=== PATIENT | female | born 1930 | race Caucasian/White ===

== ENCOUNTER 2016-03-22 17:31 | Inpatient (IN) | payer MEDICARE, OTHER ==
[2016-03-22 18:01] LABS: AUTOMATED MONOCYTE 12.7 % (3-10); AUTOMATED NEUTROPHIL 74.3 % (45-76); MPV 9.1 fL (7.4-10.4)
[2016-03-22 18:13] LABS: BLOOD UREA NITROGEN 15 MG/DL (7-17); CALC CORRECTED 8.8 MG/DL (8.4-10.2); CALCIUM 8.2 MG/DL (8.4-10.2); CALCULATED OSMOLALITY 263 MOs/Kg (270-290); CHLORIDE 97 mEq/L (98-107); GLUCOSE 168 MG/DL (70-99); SODIUM LEVEL 134 mEq/L (137-146); TOTAL PROTEIN 6.5 G/DL (6.3-8.2)
[2016-03-22 18:14] LABS: PT-INR 1.2
--- NOTE | 2016-03-22 18:32 | DIRPT ---
CLINICAL DATA: Cough, congestion and increasing shortness of breath EXAM: PORTABLE CHEST 1 VIEW COMPARISON: 12/23/2015 chest radiograph. FINDINGS: Median sternotomy wires are aligned and intact. Stable cardiomediastinal silhouette with normal heart size. No pneumothorax. No pleural effusion. There is a paucity of lung markings throughout the lungs, suggesting emphysema. There is patchy opacity in the medial basilar left lung. No pulmonary edema. IMPRESSION: 1. Patchy medial basilar left lung opacity, most suggestive of pneumonia and/or aspiration. Recommend follow-up PA and lateral post treatment chest radiographs in 6-8 weeks. 2. Emphysema. Electronically Signed By: Juwan Mcmahon M.D. On: 03/22/2016 18:29
--- NOTE | 2016-03-22 18:54 | EDPRACDOC ---
<Sander Sanabria - Last Filed: 03/22/16 19:58> - General Information Information Source: Patient - History of Present Illness Onset: 2-3 DAYS HPI: PT SENT FROM PCP OFFICE DUE TO THEM CLOSING FOR COUGH FOR 2 DAYS AND INCREASING SOB. NO FEVERS OR PRODUCTIVE SPUTUM AT THIS TIME. PT APPEARS CACHECTIC. Shortness of Breath: Mild Relevant History: Reports: None Cough: Reports: Non-productive Rhinorrhea: Reports: None Ear Symptoms: Reports: None SOB Worsens with: Reports: Exertion SOB Improves with: Reports: Nothing Associated Signs and symptoms: Reports: Cough, Other (INCREASED SOB. ) <James Amador - Last Filed: 03/22/16 20:39> - General Information Chief Complaint: Flu-Like Symptoms Stated Complaint: COUGH,CONGESTION Time Seen by Provider: 03/22/16 18:20 Home Medications: Home Medications Donepezil HCl [Aricept] 10 mg PO QHS 07/19/15 Levothyroxine [Synthroid, Levoxyl] 50 mcg PO DAILY 07/19/15 Quetiapine Fumarate [Seroquel] 25 mg PO QHS 07/19/15 Protein Products [Beneprotein] 7 gm PO TID 07/27/15 Metformin HCl 500 mg PO BID 08/16/15 Allergies/Adverse Reactions: Allergies Allergy/AdvReac Type Severity Reaction Status Date / Time gabapentin [From Neurontin] Allergy Unknown Verified 04/26/15 09:02 Iodine and Iodide Containing Allergy Unknown Verified 04/26/15 08:58 Produc levofloxacin [From Levaquin] Allergy Unknown Verified 04/26/15 08:59 meloxicam [From Mobic] Allergy Unknown Verified 04/26/15 09:00 metoprolol Allergy Unknown Verified 04/26/15 09:00 naproxen Allergy Unknown Verified 04/26/15 09:01 Penicillins Allergy Unknown Verified 04/26/15 09:07 Tetracyclines Allergy Unknown Verified 04/26/15 09:08 macrolides Allergy Unknown Uncoded 04/26/15 09:09 opiods Allergy Unknown Uncoded 04/26/15 09:09 - Treatment Prior to ED Arrival Reported Medications/Treatment [employer] Meds/Treatments Given O2 via Cannula EMS Treatment ALS <Sander Sanabria - Last Filed: 03/22/16 19:58> - Treatment Prior to ED Arrival Reported Medications/Treatment [employer] Meds/Treatments Given O2 via Cannula EMS Treatment ALS <James Amador - Last Filed: 03/22/16 20:39> ED Past Medical History - History Reviewed Yes Nurses notes reviewed and agree except as marked Travel Outside of [place] in the Last 3 Months?: No - Patient Medical History Neurological History: Reports: Dementia (severe) Cardiac History: Reports: Coronary Artery Disease, Hypertension, Cardiac Catheterization (2010 in [place]; stent placed.), CABG, Hypercholesterolemia GI/ History: Reports: Urinary Tract Infection (RECENTLY DIAGNOSED), Gastroesophageal Reflux Musculoskeletal History: Reports: Arthritis Psychological History: Denies: Depression, Substance Use Disorder Systemic History: Reports: Diabetes (Type 2), Hypothyroidism Surgical History: Reports: Cholecystectomy, CABG, Cardiac Catheterization (2010 in [place]; stent placed.), Hernia Surgery, Tonsillectomy/Adnoidectomy, Other ( THYROIDECTOMY, CATARACTS) - Family Medical History Comment Only: Diabetes (UNKNOWN PT CONFUSED) - Social Medical History Smoking Status: Former smoker Social History: Denies: Substance Use Disorder ETOH: None Substance Abuse: None Lives With: Other Lives In: Home <James Amador - Last Filed: 03/22/16 20:39> EDM Review of Systems - Review of Systems ROS Negative Except as Marked: Yes All systems reviewed and were negative except as marked Constitutional: No Symptoms Reported. negative: Fever, Chills, Weakness, Fatigue, Loss of Appetite Eyes: No Symptoms Reported. negative: Redness, Blurred Vision, Double Vision, Discharge, Pain, Light Sensitive, Photophobia Ears: No Symptoms Reported. negative: Pain, Hearing Loss, Drainage, Ear Pulling Throat: No Symptoms Reported. negative: Pain, Swelling Nose: No Symptoms Reported. negative: Congestion, Bleeding, Discharge, Injection, Swelling, Deformity, Ecchymosis, Tender, Abrasion, Laceration Mouth: No Symptoms Reported. negative: Pain, Drooling Respiratory: Cough. negative: Barky Cough, Brassy Cough, Hemoptysis, Shortness of Breath, Wheezing Cardiovascular: No Symptoms Reported. negative: Chest Pain, Palpitations, Syncope, Edema, Orthopnea, PND, Skin Mottling, Cyanosis Gastrointestinal: No Symptoms Reported. negative: Pain, Constipation, Nausea, Vomiting, Diarrhea, Melena, Formula Intolerance Genitourinary: No Symptoms Reported. negative: Dysuria, Hematuria, Frequency, Discharge, Bleeding, Testicular Pain, Neurological: No Symptoms Reported. negative: Headache, Dizziness, Seizure, Numbness, Weakness, Speech Difficulty, Gait Difficulty Musculoskeletal: No Symptoms Reported. negative: Neck, Chestwall, Ribs, Back, Shoulder, Arm, Elbow, Forearm, Wrist, Hand, Pelvis, Hip, Femur, Knee, Leg, Ankle , Foot Integumentary: No Symptoms Reported. negative: Itching, Rash, Bruising, Wound Allergic/Immunologic: No Symptoms Reported. negative: Hives, Itching Hematologic: No Symptoms Reported. negative: Lymphadenopathy, Easy Bruising, Easy Bleeding Endocrine: No Symptoms Reported. negative: Weight Gain, Weight Loss Psychiatric: No Symptoms Reported. negative: Anxiety, Depression, Hallucinations, Insomnia, Suicidal <James Amador - Last Filed: 03/22/16 20:39> - Physical Exam Last recorded Vital Signs: Last Vital Signs Temp 98.4 F 03/22/16 17:33 Pulse 107 03/22/16 19:37 Resp 16 03/22/16 19:37 BP 92/54 L 03/22/16 19:37 Pulse Ox 97 03/22/16 19:37 Oxygen Pulse Oxygen Saturation 97 O2 Device Nasal Cannula Oxygen Flow Rate 2 Fraction of Inspired Oxygen ( FIO2) <Sander Sanabria - Last Filed: 03/22/16 19:58> - Physical Exam Constitutional: No apparent distress, Alert (Awake) Oriented to: Time, Person, Place Last recorded Vital Signs: Last Vital Signs Temp 98.4 F 03/22/16 17:33 Pulse 82 03/22/16 18:49 Resp 18 03/22/16 18:49 BP 107/51 L 03/22/16 18:49 Pulse Ox 94 03/22/16 18:49 Oxygen Pulse Oxygen Saturation 94 O2 Device Room Air Oxygen Flow Rate Fraction of Inspired Oxygen ( FIO2) - HEENT Head: Normal ( normocephalic) Eye Exam: Normal (PERRL, EOMI, Sclera white) Oropharynx: Normal (Pharynx:Moist without exudate,Gums-no swelling) Tympanic Membrane: Normal ENT EAC: Normal TMJ: Normal Nose: No Symptoms Reported (septum midline) Neck: Normal (FROM, trachea at midline) - Respiratory/Cardiovascular Respiratory: Diminished Cardiovascular: Normal (RRR without murmur, gallop or rub) - GI Auscultation: Normal (NABS) Palpation: Normal (Soft,No rebound or guarding, non distended) Tenderness: Non tender Wesley's Sign: Negative - Bladder: Normal - Musculoskeletal Back: Normal (Non-Tender) Extremities: Normal (Normal tone, Pulses 2+ No cyanosis or edema, FROM) - Integumentary Skin: Normal, Warm, Dry Lymphatics: Normal (no adenopathy) - Neurologic Memory Impaired: Normal Motor Function: Normal (Normal tone, Pulses 2+ No cyanosis or edema, FROM) Cranial Nerve: Normal (CN II-X11 intact sensation, strength 5/5) Cerebellar: Normal Mood Description: Normal Perception: Normal <James Amador - Last Filed: 03/22/16 20:39> ED SOB MDM - Results Result Diagrams: 03/22/16 17:48 03/22/16 17:48 Results: WBC 9.4 xk/uL (3.8-10.8) 03/22/16 17:48 RBC 4.08 xM/uL (4.20-5.40) L 03/22/16 17:48 Hgb 12.6 g/dL (12.0-16.0) 03/22/16 17:48 Hct 38.3 % (36-47) 03/22/16 17:48 MCV 94 fL (81-99) 03/22/16 17:48 MCH 30.9 pg (27-32) 03/22/16 17:48 MCHC 32.9 g/dl (33-36) L 03/22/16 17:48 RDW 14.8 % (11.5-14.5) H 03/22/16 17:48 Plt Count 232 xk/uL (130-400) 03/22/16 17:48 MPV 9.1 fL (7.4-10.4) 03/22/16 17:48 Neut % (Auto) 74.3 % (45-76) 03/22/16 17:48 Lymph % (Auto) 12.0 % (17-44) L 03/22/16 17:48 [place] % (Auto) 12.7 % (3-10) H 03/22/16 17:48 Eos % (Auto) 0.0 % (0-5) 03/22/16 17:48 Baso % (Auto) 1.0 % (0-2) 03/22/16 17:48 Absolute Neuts (auto) 6.96 xk/uL (1.7-8.2) 03/22/16 17:48 Absolute Lymphs (auto) 1.13 xk/uL (0.65-4.75) 03/22/16 17:48 PT 12.7 SEC (9.2-11.2) H 03/22/16 17:48 INR 1.2 03/22/16 17:48 APTT 31.0 SEC (22-35) 03/22/16 17:48 Puncture Site Left radial 03/22/16 18:52 pH 7.480 pH UNITS (7.35-7.45) H 03/22/16 18:52 pCO2 35.0 mmHg (35-45) 03/22/16 18:52 pO2 64.0 mmHg (80-100) L 03/22/16 18:52 HCO3 26.1 MMOL/L (22-26) H 03/22/16 18:52 Total CO2 27.2 MMOL/L (23-27) H 03/22/16 18:52 Base Excess 2.8 (+/- 2) H 03/22/16 18:52 FiO2 % 21% 03/22/16 18:52 Specimen Drawn By Kasgl 03/22/16 18:52 Sodium 134 mEq/L (137-146) L 03/22/16 17:48 Potassium 4.0 mEq/L (3.5-5.1) 03/22/16 17:48 Chloride 97 mEq/L (98-107) L 03/22/16 17:48 Carbon Dioxide 27 mMOL/L (22-33) 03/22/16 17:48 Anion Gap 14 mEq/L (8-16) 03/22/16 17:48 BUN 15 MG/DL (7-17) 03/22/16 17:48 Creatinine 0.80 MG/DL (0.52-1.04) 03/22/16 17:48 Estimated GFR (MDRD) > 60 mL/min (>=60) 03/22/16 17:48 Glucose 168 MG/DL (70-99) H 03/22/16 17:48 Calculated Osmolality 263 MOs/Kg (270-290) L 03/22/16 17:48 Calcium 8.2 MG/DL (8.4-10.2) L 03/22/16 17:48 Corrected Calcium 8.8 MG/DL (8.4-10.2) 03/22/16 17:48 Total Bilirubin 0.7 MG/DL (0.2-1.3) 03/22/16 17:48 AST 35 IU/L (14-36) 03/22/16 17:48 ALT 40 IU/L (9-52) 03/22/16 17:48 Alkaline Phosphatase 98 IU/L (55-165) 03/22/16 17:48 Troponin I 0.04 ng/mL (<.04) 03/22/16 17:48 Total Protein 6.5 G/DL (6.3-8.2) 03/22/16 17:48 Albumin 3.4 G/DL (3.5-5.0) L 03/22/16 17:48 Microbiology 03/22/16 18:27 Influenza Type A Antigen Screen - Final N/P - Naso/Pharyngeal NEGATIVE Please note: A NEGATIVE result does not exclude an influenza virus infection. It is a presumptive result and, if required, confirmation should be done using either a virus culture or an FDA-cleared influenza A&B molecular assay. ("NORMAL" value = "NEGATIVE".) Influenza Type B Antigen Screen - Final NEGATIVE Please note: A NEGATIVE result does not exclude an influenza virus infection. It is a presumptive result and, if required, confirmation should be done using either a virus culture or an FDA-cleared influenza A&B molecular assay. ("NORMAL" value = "NEGATIVE".) Lab Results 03/22/16 03/22/16 03/22/16 18:52 17:48 17:48 WBC 9.4 RBC 4.08 L Hgb 12.6 Hct 38.3 MCV 94 MCH 30.9 MCHC 32.9 L RDW 14.8 H Plt Count 232 MPV 9.1 Neut % (Auto) 74.3 Lymph % (Auto) 12.0 L [place] % (Auto) 12.7 H Eos % (Auto) 0.0 Baso % (Auto) 1.0 Absolute Neuts (auto) 6.96 Absolute Lymphs (auto) 1.13 PT 12.7 H INR 1.2 APTT 31.0 Puncture Site Left radial pH 7.480 H pCO2 35.0 pO2 64.0 L HCO3 26.1 H Total CO2 27.2 H Base Excess 2.8 H FiO2 % 21% Specimen Drawn By Kasgl Sodium Potassium Chloride Carbon Dioxide Anion Gap BUN Creatinine Estimated GFR (MDRD) Glucose Calculated Osmolality Calcium Corrected Calcium Total Bilirubin AST ALT Alkaline Phosphatase Troponin I Total Protein Albumin 03/22/16 17:48 WBC RBC Hgb Hct MCV MCH MCHC RDW Plt Count MPV Neut % (Auto) Lymph % (Auto) [place] % (Auto) Eos % (Auto) Baso % (Auto) Absolute Neuts (auto) Absolute Lymphs (auto) PT INR APTT Puncture Site pH pCO2 pO2 HCO3 Total CO2 Base Excess FiO2 % Specimen Drawn By Sodium 134 L Potassium 4.0 Chloride 97 L Carbon Dioxide 27 Anion Gap 14 BUN 15 Creatinine 0.80 Estimated GFR (MDRD) > 60 Glucose 168 H Calculated Osmolality 263 L Calcium 8.2 L Corrected Calcium 8.8 Total Bilirubin 0.7 AST 35 ALT 40 Alkaline Phosphatase 98 Troponin I 0.04 Total Protein 6.5 Albumin 3.4 L <Sander Sanabria - Last Filed: 03/22/16 19:58> - Differential Diagnosis Differential Diagnosis: Heart Failure, Pnuemonia, Other (COPD, VIRAL SYNDROME) - Results Result Diagrams: 03/22/16 17:48 03/22/16 17:48 Results: WBC 9.4 xk/uL (3.8-10.8) 03/22/16 17:48 RBC 4.08 xM/uL (4.20-5.40) L 03/22/16 17:48 Hgb 12.6 g/dL (12.0-16.0) 03/22/16 17:48 Hct 38.3 % (36-47) 03/22/16 17:48 MCV 94 fL (81-99) 03/22/16 17:48 MCH 30.9 pg (27-32) 03/22/16 17:48 MCHC 32.9 g/dl (33-36) L 03/22/16 17:48 RDW 14.8 % (11.5-14.5) H 03/22/16 17:48 Plt Count 232 xk/uL (130-400) 03/22/16 17:48 MPV 9.1 fL (7.4-10.4) 03/22/16 17:48 Neut % (Auto) 74.3 % (45-76) 03/22/16 17:48 Lymph % (Auto) 12.0 % (17-44) L 03/22/16 17:48 [place] % (Auto) 12.7 % (3-10) H 03/22/16 17:48 Eos % (Auto) 0.0 % (0-5) 03/22/16 17:48 Baso % (Auto) 1.0 % (0-2) 03/22/16 17:48 Absolute Neuts (auto) 6.96 xk/uL (1.7-8.2) 03/22/16 17:48 Absolute Lymphs (auto) 1.13 xk/uL (0.65-4.75) 03/22/16 17:48 PT 12.7 SEC (9.2-11.2) H 03/22/16 17:48 INR 1.2 03/22/16 17:48 APTT 31.0 SEC (22-35) 03/22/16 17:48 Sodium 134 mEq/L (137-146) L 03/22/16 17:48 Potassium 4.0 mEq/L (3.5-5.1) 03/22/16 17:48 Chloride 97 mEq/L (98-107) L 03/22/16 17:48 Carbon Dioxide 27 mMOL/L (22-33) 03/22/16 17:48 Anion Gap 14 mEq/L (8-16) 03/22/16 17:48 BUN 15 MG/DL (7-17) 03/22/16 17:48 Creatinine 0.80 MG/DL (0.52-1.04) 03/22/16 17:48 Estimated GFR (MDRD) > 60 mL/min (>=60) 03/22/16 17:48 Glucose 168 MG/DL (70-99) H 03/22/16 17:48 Calculated Osmolality 263 MOs/Kg (270-290) L 03/22/16 17:48 Calcium 8.2 MG/DL (8.4-10.2) L 03/22/16 17:48 Corrected Calcium 8.8 MG/DL (8.4-10.2) 03/22/16 17:48 Total Bilirubin 0.7 MG/DL (0.2-1.3) 03/22/16 17:48 AST 35 IU/L (14-36) 03/22/16 17:48 ALT 40 IU/L (9-52) 03/22/16 17:48 Alkaline Phosphatase 98 IU/L (55-165) 03/22/16 17:48 Troponin I 0.04 ng/mL (<.04) 03/22/16 17:48 Total Protein 6.5 G/DL (6.3-8.2) 03/22/16 17:48 Albumin 3.4 G/DL (3.5-5.0) L 03/22/16 17:48 Lab Results 03/22/16 03/22/16 03/22/16 17:48 17:48 17:48 WBC 9.4 RBC 4.08 L Hgb 12.6 Hct 38.3 MCV 94 MCH 30.9 MCHC 32.9 L RDW 14.8 H Plt Count 232 MPV 9.1 Neut % (Auto) 74.3 Lymph % (Auto) 12.0 L [place] % (Auto) 12.7 H Eos % (Auto) 0.0 Baso % (Auto) 1.0 Absolute Neuts (auto) 6.96 Absolute Lymphs (auto) 1.13 PT 12.7 H INR 1.2 APTT 31.0 Sodium 134 L Potassium 4.0 Chloride 97 L Carbon Dioxide 27 Anion Gap 14 BUN 15 Creatinine 0.80 Estimated GFR (MDRD) > 60 Glucose 168 H Calculated Osmolality 263 L Calcium 8.2 L Corrected Calcium 8.8 Total Bilirubin 0.7 AST 35 ALT 40 Alkaline Phosphatase 98 Troponin I 0.04 Total Protein 6.5 Albumin 3.4 L - EKG EKG #1 EKG Time: 17:54 -: Yes EKG interpreted by me Rate: bpm: 94 [place]: Normal Rhythm: NSR, PACs Block: None Hypertrophy: None ST: Normal <James Amador - Last Filed: 03/22/16 20:39> - Departure Yes I personally saw and evaluated the patient. Disposition: Admit IP To This Hospital Decision to Admit Time: 20:00 Decision to admit date: 03/22/16 Decision to admit: from ED - Physician Consulted Hospitalist Time Called: 20:00 Provider Called: [employer] Returned Call: 20:00 <Sander Sanabria - Last Filed: 03/22/16 19:58> <James Amador - Last Filed: 03/22/16 20:39> - Departure Condition: Stable Final Diagnosis: Aspiration pneumonia Qualifiers: Aspiration pneumonia type: unspecified Laterality: left Lung location: lower lobe of lung Qualified Code(s): J69.0 - Pneumonitis due to inhalation of food and vomit Referrals: None,No Provider [Primary Care Provider] - One Week
[2016-03-22 18:57] LABS: ABG Draw Site Left Radial; ALLEN'S TEST PASS; BEb 2.8 (+/- 2); TCO2 27.2 MMOL/L (23-27)
[2016-03-22] MEDS ORDERED: AZITHROMYCIN 500 MG in D5W 250 ML IV ONE (18:58)
[2016-03-22 20:00] LABS: LEUKOCYTES/URINE TRACE (NEGATIVE); NITRITE/URINE NEG (NEGATIVE); URINE OCCULT BLOOD NEG (NEG/TRACE); WBC/URINE 20-30 (0-5)
--- NOTE | 2016-03-22 20:09 | HISTPHYS ---
- Chief Complaint coughing, shortness of breath - History of Present Illness PRIMARY CARE PROVIDER: Kait Hugo HPI: The patient is an 85 yo woman with dementia who lives at home with her daughter who presents with acute shortness of breath with intermittent chest pain. The patient has severe dementia so much of the history was provided by the patient' s daughter. Onset: 2-3 days. Duration: intermittent. Location: patient does not remember. Radiation: does not remember. Character: couldn't get a good breath. Severe coughing. Alleviated by: Nothing. Exacerbated by: Nothing. Associated Symptoms: Left arm pain started today. Intermittent chest pain but none now. Coughing productive of yellow-green sputum. Family noticed she has hard time swallowing and sometimes holds food in her mouth. Fever at home up to 102 about 2 days ago. Not eating and drinking much. Treatments: none at home except usual medications. Left foot has been black in color x 2 weeks. Getting darker. Does not hurt. Over last 2 weeks or so, she will start walking and then just fall down. She has had bilateral leg weakness. - Medical History Cardiac History: Reports: Coronary Artery Disease, Hypertension, Cardiac Catheterization (2010 in [place]; stent placed.), CABG, Hypercholesterolemia GI/ History: Reports: Urinary Tract Infection, Gastroesophageal Reflux Musculoskeletal History: Reports: Arthritis Systemic History: Reports: Diabetes (Type 2), Hypothyroidism Neurological History: Reports: Dementia (severe) Psychological History: Denies: Depression, Substance Use Disorder - Surgical History Reports: Cholecystectomy, CABG, Cardiac Catheterization (2010 in [place]; stent placed.), Hernia Surgery, Tonsillectomy/Adnoidectomy, Other (THYROIDECTOMY, CATARACTS) - Medictions/Allergies Allergies gabapentin [From Neurontin] Allergy (Verified 04/26/15 09:02) Unknown Iodine and Iodide Containing Produc Allergy (Verified 04/26/15 08:58) Unknown levofloxacin [From Levaquin] Allergy (Verified 04/26/15 08:59) Unknown meloxicam [From Mobic] Allergy (Verified 04/26/15 09:00) Unknown metoprolol Allergy (Verified 04/26/15 09:00) Unknown naproxen Allergy (Verified 04/26/15 09:01) Unknown Penicillins Allergy (Verified 04/26/15 09:07) Unknown Tetracyclines Allergy (Verified 04/26/15 09:08) Unknown macrolides Allergy (Uncoded 04/26/15 09:09) Unknown opiods Allergy (Uncoded 04/26/15 09:09) Unknown Current Medication List: Reviewed Home Medications Donepezil HCl [Aricept] 10 mg PO QHS 07/19/15 Levothyroxine [Synthroid, Levoxyl] 50 mcg PO DAILY 07/19/15 Quetiapine Fumarate [Seroquel] 25 mg PO QHS 07/19/15 Protein Products [Beneprotein] 7 gm PO TID 07/27/15 Metformin HCl 500 mg PO BID 08/16/15 - Family History Reports: Diabetes (Mother, son), Cancer (Father: leukemia.), Cardiac Disorders ( Mother: [place] - Social History Smoking Status: Former smoker Social History: Denies: Alcohol Use, Substance Use Disorder - Review of Systems GENERAL: Fever, chills. No diaphoresis. Positive for fatigue/malaise. HEENT: No ear pain or discharge. No nasal discharge or bleeding. No throat pain or swelling. No eye pain or eye redness. RESPIRATORY:Has cough, wheezing, and shortness of breath. CARDIOVASCULAR: No palpitations. Intermittent chest pain. GI: No abdominal pain, nausea, vomiting, diarrhea, constipation, or bloody stool. NEUROLOGICAL: No headache or focal weakness. INTEGUMENT: no rashes, itching, or lesions. LYMPHATIC SYSTEM: no lymph node swelling or pain. MUSCULOSKELETAL: no pain or joint swelling. GENITOURINARY: No dysuria or hematuria. ENDOCRINE: No polyuria or polydipsia. HEME: No chronic anemia, bleeding, or easy bruising. - Physical Exam Vital Signs: Initial Vitals Temperature 98.4 F 03/22/16 17:33 Pulse Rate 76 03/22/16 17:33 Respiratory Rate 16 03/22/16 17:33 Blood Pressure 109/57 L 03/22/16 17:33 Pulse Oxygen Saturation 92 03/22/16 17:33 Vital Signs - 24 hr 03/22/16 03/22/16 03/22/16 17:33 17:39 18:49 Temperature 98.4 F Pulse Rate 76 82 Respiratory 16 16 18 Rate Blood Pressure 109/57 L 107/51 L Pulse Oxygen 92 94 Saturation 03/22/16 03/22/16 19:00 19:37 Temperature Pulse Rate 107 Respiratory 16 Rate Blood Pressure 92/54 L Pulse Oxygen 95 97 Saturation Weight: 49.9 kg Height: 5 feet 8 inches BMI: 16.7 - Other Exam Other Exam Findings: GENERAL: Ill-appearing, cachetic, in acute distress. HEENT: Normocephalic, atraumatic; pupils equal and round. Nares patent, without discharge or bleeding. No oropharyngeal lesions or erythema. Mucous membranes are dry. NECK: is supple, no masses, trachea midline. RESPIRATORY: Clear to auscultation bilaterally. Chest wall movements are symmetric. No use of accessory muscles to breathe. Intermittent tachypnea. Bilateral rhonchi in bases and throughout left lung. No wheezing or rales. CARDIOVASCULAR: Normal S1, S2. Murmur 2/6 systolic. No rubs, or gallops. PMI non -displaced. Carotids: no carotid bruits. No bradycardia or tachycardia. DP pulses 2+ bilaterally. GI: soft, non-distended, normal active bowel sounds. No hepatosplenomegaly. Minimal generalized tenderness. INTEGUMENT: Clean, dry, and intact. No rashes. Right foot with ecchymoses throughout dorsal aspect. MUSCULOSKELETAL: Moving all extremities. No cyanosis. No clubbing. Edema: none bilaterally. NEUROLOGICAL: Cranial nerves 2-12 grossly intact. Motor 4/5 throughout upper extremities and 3/5 in lower extremities. Reflexes: 2+ bilaterally. Babinski: toes downgoing bilaterally. Intact Finger to nose. Sensory grossly intact to light touch. Intact rapid alternating movements bilaterally. No pronator drift. PSYCHIATRIC: Not oriented. Normal and appropriate affect. LYMPHATIC: No cervical lymphadenopathy. No supraclavicular lymphadenopathy. - Lab Results Laboratory Results - last 24 hr 03/22/16 03/22/16 03/22/16 17:48 17:48 17:48 WBC 9.4 RBC 4.08 L Hgb 12.6 Hct 38.3 MCV 94 MCH 30.9 MCHC 32.9 L RDW 14.8 H Plt Count 232 MPV 9.1 Neut % (Auto) 74.3 Lymph % (Auto) 12.0 L Harmon % (Auto) 12.7 H Eos % (Auto) 0.0 Baso % (Auto) 1.0 Absolute Neuts (auto) 6.96 Absolute Lymphs (auto) 1.13 PT 12.7 H INR 1.2 APTT 31.0 Puncture Site pH pCO2 pO2 HCO3 Total CO2 Base Excess FiO2 % Specimen Drawn By Sodium 134 L Potassium 4.0 Chloride 97 L Carbon Dioxide 27 Anion Gap 14 BUN 15 Creatinine 0.80 Estimated GFR (MDRD) > 60 Glucose 168 H Calculated Osmolality 263 L Lactic Acid Calcium 8.2 L Corrected Calcium 8.8 Total Bilirubin 0.7 AST 35 ALT 40 Alkaline Phosphatase 98 Troponin I 0.04 Total Protein 6.5 Albumin 3.4 L Urine Color Urine Clarity Urine pH Ur Specific [place] Urine Protein Urine Glucose (UA) Urine Ketones Urine Occult Blood Urine Nitrite Urine Bilirubin Urine Urobilinogen Ur Leukocyte Esterase Urine WBC Ur Epithelial Cells Urine Bacteria Urine Mucus 03/22/16 03/22/16 03/22/16 18:52 19:20 19:37 WBC RBC Hgb Hct MCV MCH MCHC RDW Plt Count MPV Neut % (Auto) Lymph % (Auto) Harmon % (Auto) Eos % (Auto) Baso % (Auto) Absolute Neuts (auto) Absolute Lymphs (auto) PT INR APTT Puncture Site Left radial pH 7.480 H pCO2 35.0 pO2 64.0 L HCO3 26.1 H Total CO2 27.2 H Base Excess 2.8 H FiO2 % 21% Specimen Drawn By [place] Sodium Potassium Chloride Carbon Dioxide Anion Gap BUN Creatinine Estimated GFR (MDRD) Glucose Calculated Osmolality Lactic Acid 1.1 Calcium Corrected Calcium Total Bilirubin AST ALT Alkaline Phosphatase Troponin I Total Protein Albumin Urine Color Yellow Urine Clarity Clear Urine pH 6.0 Ur Specific [place] 1.015 Urine Protein 1+ H Urine Glucose (UA) 2+ H Urine Ketones Neg Urine Occult Blood Neg Urine Nitrite Neg Urine Bilirubin Neg Urine Urobilinogen 2 H Ur Leukocyte Esterase Trace H Urine WBC 20-30 H Ur Epithelial Cells Occ Urine Bacteria Few Urine Mucus Occ - Diagnostic Findings EK beats per minute. Sinus rhythm with blocked PACs. T-wave inversion in lead V2. Reviewed EKG personally. Chest x-ray, viewed personally: CLINICAL DATA: Cough, congestion and increasing shortness of breath EXAM: PORTABLE CHEST 1 VIEW COMPARISON: 12/23/2015 chest radiograph. FINDINGS: Median sternotomy wires are aligned and intact. Stable cardiomediastinal silhouette with normal heart size. No pneumothorax. No pleural effusion. There is a paucity of lung markings throughout the lungs, suggesting emphysema. There is patchy opacity in the medial basilar left lung. No pulmonary edema. IMPRESSION: 1. Patchy medial basilar left lung opacity, most suggestive of pneumonia and/or aspiration. Recommend follow-up PA and lateral post treatment chest radiographs in 6-8 weeks. 2. Emphysema. PREVIOUS DATA: Stress test 07/27/2015 revealed: no evidence of ischemia. Normal wall motion. EF 79%. - Assessment (1) Aspiration pneumonia J69.0 - PNEUMONITIS DUE TO INHALATION OF FOOD AND VOMIT Acute Present on Admission: Yes Qualifiers: Aspiration pneumonia type: unspecified Laterality: left Lung location: lower lobe of lung Qualified Code(s): J69.0 - Pneumonitis due to inhalation of food and vomit Plan: NPO until speech therapy evaluation. Cultures ordered. IV antibiotics: Challenging due to patient's multiple allergies. Will try a cephalosporin and another agent. IV ceftriazone and aztreonam. (2) Hypoxia R09.02 - HYPOXEMIA Acute Present on Admission: Yes Plan: Oxygen by nasal cannula and increase as needed. (3) Dysphagia R13.10 - DYSPHAGIA, UNSPECIFIED Acute Present on Admission: Yes History of holding food in her mouth and not swallowing well. 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 Plan: NPO until speech therapy evaluation. (4) Type 2 diabetes mellitus with hyperglycemia E11.65 - TYPE 2 DIABETES MELLITUS WITH HYPERGLYCEMIA Acute Present on Admission: Yes Plan: Hold oral diabetes medications. Check fingerstick blood sugars q ac and hs. Sliding scale insulin. Ordered A1c and urine microalbumin. (5) Hypothyroidism E03.9 - HYPOTHYROIDISM, UNSPECIFIED Acute Present on Admission: Yes Check TSH. Continue Synthroid. (6) Dementia F03.90 - UNSPECIFIED DEMENTIA WITHOUT BEHAVIORAL DISTURBANCE Chronic Present on Admission: Yes Not oriented. Will hinder efforts with patient education and treatment. Plan: Continue home meds. (7) Chest pain R07.9 - CHEST PAIN, UNSPECIFIED Acute Present on Admission: Yes Patient initially said she had no chest pain, but then later stated she had some chest pain previously. Denies chest pain on admission. Chest pain, if any, is most likely due to coughing and respiratory issues. Stress test 07/27/2015 revealed: no evidence of ischemia. Normal wall motion. EF 79%. Plan: Monitor for further episodes of chest pain. Treat with pain medication. (8) Bilateral leg weakness R29.898 - OTH SYMPTOMS AND SIGNS INVOLVING THE MUSCULOSKELETAL SYSTEM Acute Present on Admission: Yes Has been present x several weeks. Plan: PT therapy eval and treat. Case Care Discussed with: Patient, Family, Nursing Staff Total Time: 70 min Couseling Time (>50% in counseling/coordination): Yes
[2016-03-22] MEDS ORDERED: NS 1,000 ML IV ONE (20:19)
[2016-03-22] MEDS: CEFTRIAXONE 1 GM in D5W 100 ML IV SCH (21:00)
[2016-03-22] MEDS ORDERED: D5W IV SCH (22:00)
[2016-03-22] MEDS ORDERED: AZTREONAM IV SCH (22:00)
[2016-03-22] MEDS: NS 1,000 ML IV SCH (22:17)
[2016-03-22] MEDS ORDERED: Vaccine Screening Complete SCH (23:00)
[2016-03-23] MEDS ORDERED: TEMAZEPAM 15 MG CAP PO PRN (00:14)
[2016-03-23] MEDS ORDERED: Aluminum;Magnesium;Simethicone 30 ML UDC PO PRN (00:14)
[2016-03-23] MEDS ORDERED: GLUCOSE (ORAL GEL) 15 GM TUBE PO PRN (00:14)
[2016-03-23] MEDS ORDERED: DEXTROSE 25 GM/50 ML PFS IV PRN (00:14)
[2016-03-23] MEDS ORDERED: SENNA CONCENTRATE TAB PO PRN (00:14)
[2016-03-23] MEDS ORDERED: BENZONATATE 100 MG PERLES PO PRN (00:14)
[2016-03-23] MEDS ORDERED: PROMETHAZINE 25 MG/ML VIAL IV PRN (00:14)
[2016-03-23] MEDS ORDERED: ONDANSETRON HCL 4 MG/2 ML VIAL IV PRN (00:14)
[2016-03-23] MEDS ORDERED: SIMETHICONE 80 MG TAB PO PRN (00:14)
[2016-03-23] MEDS ORDERED: Docusate Sodium 100 MG CAP PO PRN (00:14)
[2016-03-23] MEDS ORDERED: GLUCAGON 1 MG VIAL SQ PRN (00:14)
[2016-03-23] MEDS ORDERED: BISACODYL 5 MG TAB PO PRN (00:14)
[2016-03-23] MEDS ORDERED: GUAIFEN 100 MG-DEXTROMETH 10 MG PER 5 ML PO PRN (00:14)
[2016-03-23] MEDS: ENOXAPARIN 30 MG/0.3 ML PFS SQ SCH ×2 (00:51→19:51)
[2016-03-23] MEDS ORDERED: ENOXAPARIN 40 MG/0.4 ML PFS SQ SCH (01:00)
[2016-03-23] MEDS: REGULAR INSULIN 100 UNITS/ML - 3 ML VIAL SQ SCH ×4 (05:48→19:57)
[2016-03-23 06:23] LABS: MPV 9.5 fL (7.4-10.4)
[2016-03-23 06:41] LABS: BLOOD UREA NITROGEN 11 MG/DL (7-17); CALCIUM 7.5 MG/DL (8.4-10.2); CALCULATED OSMOLALITY 259 MOs/Kg (270-290); CHLORIDE 102 mEq/L (98-107); GLUCOSE 95 MG/DL (70-99); SODIUM LEVEL 135 mEq/L (137-146)
[2016-03-23] MEDS: AZTREONAM IV SCH ×2 (08:01→21:03)
[2016-03-23] MEDS: D5W IV SCH ×2 (08:01→21:03)
[2016-03-23] MEDS: NS 1,000 ML IV SCH ×3 (08:01→19:50)
[2016-03-23] MEDS: LEVOTHYROXINE 50 MCG (0.05 MG) TAB PO SCH (11:24)
[2016-03-23] MEDS: GABAPENTIN 100 MG CAP PO SCH ×2 (11:24→19:50)
--- NOTE | 2016-03-23 18:00 | GENMEDPROG ---
- Physical Examination Vital Signs and I&O: Last Vital Signs Temp 98.8 F 03/23/16 15:20 Pulse 76 03/23/16 15:20 Resp 20 03/23/16 15:20 BP 143/67 03/23/16 15:20 Pulse Ox 93 03/23/16 15:20 Oxygen Pulse Oxygen Saturation 93 O2 Device Nasal Cannula Oxygen Flow Rate 1 Fraction of Inspired Oxygen ( FIO2) Intake & Output 03/20/16 03/21/16 03/22/16 03/23/16 23:59 23:59 23:59 23:59 Intake Total 700 2344 Output Total 1400 Balance 700 944 Patient's weight 36.333 kg 36.968 kg Lymphatics: Normal (no adenopathy) Respiratory: Diminished Lab/DI/Studies Reviewed: Abnormal Lab Results 03/22/16 03/22/16 03/22/16 17:48 17:48 17:48 RBC 4.08 L Hgb Hct MCHC 32.9 L RDW 14.8 H Lymph % (Auto) 12.0 L Hartley % (Auto) 12.7 H PT 12.7 H pH pO2 HCO3 Total CO2 Base Excess Sodium 134 L Chloride 97 L Glucose 168 H POC Capillary Glucose Hemoglobin A1c Calculated Osmolality 263 L Calcium 8.2 L Albumin 3.4 L Urine Protein Urine Glucose (UA) Urine Urobilinogen Ur Leukocyte Esterase Urine WBC 03/22/16 03/22/16 03/23/16 18:52 19:37 05:35 RBC Hgb Hct MCHC RDW Lymph % (Auto) Hartley % (Auto) PT pH 7.480 H pO2 64.0 L HCO3 26.1 H Total CO2 27.2 H Base Excess 2.8 H Sodium Chloride Glucose POC Capillary Glucose Hemoglobin A1c 8.2 H Calculated Osmolality Calcium Albumin Urine Protein 1+ H Urine Glucose (UA) 2+ H Urine Urobilinogen 2 H Ur Leukocyte Esterase Trace H Urine WBC 20-30 H 03/23/16 03/23/16 03/23/16 05:35 05:35 11:22 RBC 3.58 L Hgb 11.2 L D Hct 33.1 L MCHC RDW Lymph % (Auto) [place] % (Auto) PT pH pO2 HCO3 Total CO2 Base Excess Sodium 135 L Chloride Glucose POC Capillary Glucose 108 H Hemoglobin A1c Calculated Osmolality 259 L Calcium 7.5 L Albumin Urine Protein Urine Glucose (UA) Urine Urobilinogen Ur Leukocyte Esterase Urine WBC 03/23/16 16:12 RBC Hgb Hct MCHC RDW Lymph % (Auto) [place] % (Auto) PT pH pO2 HCO3 Total CO2 Base Excess Sodium Chloride Glucose POC Capillary Glucose 133 H Hemoglobin A1c Calculated Osmolality Calcium Albumin Urine Protein Urine Glucose (UA) Urine Urobilinogen Ur Leukocyte Esterase Urine WBC - Assessment (1) Aspiration pneumonia Acute J69.0 - PNEUMONITIS DUE TO INHALATION OF FOOD AND VOMIT Qualifiers: Aspiration pneumonia type: unspecified Laterality: left Lung location: lower lobe of lung Qualified Code(s): J69.0 - Pneumonitis due to inhalation of food and vomit Comment/Plan: Plan: NPO until speech therapy evaluation. Cultures ordered. IV antibiotics: Challenging due to patient's multiple allergies. Will try a cephalosporin and another agent. IV ceftriazone and aztreonam. (2) Bilateral leg weakness Acute R29.898 - OTH SYMPTOMS AND SIGNS INVOLVING THE MUSCULOSKELETAL SYSTEM Comment/Plan: Has been present x several weeks. Plan: PT therapy eval and treat. (3) Chest pain Acute R07.9 - CHEST PAIN, UNSPECIFIED Comment/Plan: Patient initially said she had no chest pain, but then later stated she had some chest pain previously. Denies chest pain on admission. Chest pain, if any, is most likely due to coughing and respiratory issues. Stress test 07/27/2015 revealed: no evidence of ischemia. Normal wall motion. EF 79%. Plan: Monitor for further episodes of chest pain. Treat with pain medication. (4) Dysphagia Acute R13.10 - DYSPHAGIA, UNSPECIFIED Comment/Plan: History of holding food in her mouth and not swallowing well. 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 Plan: NPO until speech therapy evaluation. (5) Hypothyroidism Acute E03.9 - HYPOTHYROIDISM, UNSPECIFIED Comment/Plan: Check TSH. Continue Synthroid. (6) Hypoxia Acute R09.02 - HYPOXEMIA Comment/Plan: Plan: Oxygen by nasal cannula and increase as needed. (7) Type 2 diabetes mellitus with hyperglycemia Acute E11.65 - TYPE 2 DIABETES MELLITUS WITH HYPERGLYCEMIA Comment/Plan: Plan: Hold oral diabetes medications. Check fingerstick blood sugars q ac and hs. Sliding scale insulin. Ordered A1c and urine microalbumin. (8) Dementia Chronic F03.90 - UNSPECIFIED DEMENTIA WITHOUT BEHAVIORAL DISTURBANCE Comment /Plan: Not oriented. Will hinder efforts with patient education and treatment. Plan: Continue home meds.
[2016-03-23] MEDS: QUETIAPINE FUMARATE 25 MG TAB PO SCH (19:50)
[2016-03-23] MEDS: CEFTRIAXONE 1 GM in D5W 100 ML IV SCH (19:50)
[2016-03-23] MEDS: ENSURE PUDDING CHOCOLATE 5 OZ PO SCH (19:50)
[2016-03-24] MEDS: NS 1,000 ML IV SCH ×3 (01:27→17:19)
[2016-03-24] MEDS: REGULAR INSULIN 100 UNITS/ML - 3 ML VIAL SQ SCH ×5 (06:00→21:23)
[2016-03-24] MEDS: LEVOTHYROXINE 50 MCG (0.05 MG) TAB PO SCH (07:59)
[2016-03-24] MEDS: GABAPENTIN 100 MG CAP PO SCH ×2 (07:59→21:23)
[2016-03-24] MEDS ORDERED: D5W IV SCH (08:00)
[2016-03-24] MEDS ORDERED: AZTREONAM IV SCH (08:00)
[2016-03-24] MEDS ORDERED: ENSURE PUDDING CHOCOLATE 5 OZ PO SCH (09:00)
[2016-03-24] MEDS: ENSURE PUDDING CHOCOLATE 5 OZ PO SCH ×2 (12:05→21:23)
[2016-03-24] MEDS: METRONIDAZOLE 500 MG IV SCH ×2 (14:56→22:27)
[2016-03-24] MEDS: ENOXAPARIN 30 MG/0.3 ML PFS SQ SCH (16:36)
--- NOTE | 2016-03-24 18:34 | GENMEDPROG ---
- Physical Examination Vital Signs and I&O: Last Vital Signs Temp 98 F 03/24/16 17:18 Pulse 75 03/24/16 17:18 Resp 20 03/24/16 17:18 BP 150/66 03/24/16 17:18 Pulse Ox 95 03/24/16 17:18 Oxygen Pulse Oxygen Saturation 95 O2 Device Nasal Cannula Oxygen Flow Rate 2 Fraction of Inspired Oxygen ( FIO2) Intake & Output 03/21/16 03/22/16 03/23/16 03/24/16 23:59 23:59 23:59 23:59 Intake Total 700 2584 2427 Output Total 1400 1900 Balance 700 1184 527 Patient's weight 80 lb 1.6 oz 81 lb 8 oz 83 lb 6.4 oz General: Alert, Oriented x3, No acute distress, Well appearing, Well nourished HEENT: Normal (Normocephalic, atraumatic;EOMI.Sclera white, Nares patent, without discharge or bleeding. No oropharyngeal lesions or erythema. Mucous membranes are dry.) Neck: Non-tender, Full range of motion, Normal Trachea alignment, Normal inspection (No cervical lymphadenopathy. No supraclavicular lymphadenopathy.), No Masses palpable, Supple Lymphatics: Normal (no adenopathy) Respiratory: Diminished Cardiovascular: Regular rate and rhythm (No bradycardia or tachycardia), Normal S1, No Gallops,Rubs/Murmurs, Normal S2, Good Pedal Pulses (DP pulses 2+ bilaterally) GI: Normal bowel sounds (normal active sounds), Soft (non-distended), Non tender , No hepatospenomegaly, No masses Extremities/Musculoskeletal: Normal pulses (DP pulses 2+ bilaterally) Skin: Warm,Dry and Intact, No rashes, No significant lesion Neurological: Strength at 5/5 X4 ext (Motor 5/5 throughout.), Normal tone, Cranial nerves 3-12 NL ( 2-12 grossly intact.) Psych/Mental Status: Appropriate, Normal Affect - Assessment (1) Aspiration pneumonia Acute J69.0 - PNEUMONITIS DUE TO INHALATION OF FOOD AND VOMIT Qualifiers: Aspiration pneumonia type: unspecified Laterality: left Lung location: lower lobe of lung Qualified Code(s): J69.0 - Pneumonitis due to inhalation of food and vomit Comment/Plan: Plan: NPO until speech therapy evaluation. Cultures ordered. IV antibiotics: Challenging due to patient's multiple allergies. Will try a cephalosporin and another agent. IV ceftriazone and aztreonam. (2) Hypoxia Acute R09.02 - HYPOXEMIA Comment/Plan: Plan: Oxygen by nasal cannula and increase as needed. (3) Chest pain Acute R07.9 - CHEST PAIN, UNSPECIFIED Comment/Plan: Patient initially said she had no chest pain, but then later stated she had some chest pain previously. Denies chest pain on admission. Chest pain, if any, is most likely due to coughing and respiratory issues. Stress test 07/27/2015 revealed: no evidence of ischemia. Normal wall motion. EF 79%. Plan: Monitor for further episodes of chest pain. Treat with pain medication. (4) Bilateral leg weakness Acute R29.898 - OTH SYMPTOMS AND SIGNS INVOLVING THE MUSCULOSKELETAL SYSTEM Comment/Plan: Has been present x several weeks. Plan: PT therapy eval and treat. (5) Dysphagia Acute R13.10 - DYSPHAGIA, UNSPECIFIED Comment/Plan: History of holding food in her mouth and not swallowing well. 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 Plan: NPO until speech therapy evaluation. (6) Hypothyroidism Acute E03.9 - HYPOTHYROIDISM, UNSPECIFIED Comment/Plan: Check TSH. Continue Synthroid. (7) Type 2 diabetes mellitus with hyperglycemia Acute E11.65 - TYPE 2 DIABETES MELLITUS WITH HYPERGLYCEMIA Comment/Plan: Plan: Hold oral diabetes medications. Check fingerstick blood sugars q ac and hs. Sliding scale insulin. Ordered A1c and urine microalbumin. (8) Dementia Chronic F03.90 - UNSPECIFIED DEMENTIA WITHOUT BEHAVIORAL DISTURBANCE Comment /Plan: Not oriented. Will hinder efforts with patient education and treatment. Plan: Continue home meds. Critical Care: No Code: [id number] (12+)
[2016-03-24] MEDS: CEFTRIAXONE 1 GM in D5W 100 ML IV SCH (21:22)
[2016-03-24] MEDS: QUETIAPINE FUMARATE 25 MG TAB PO SCH (21:23)
[2016-03-25] MEDS: METRONIDAZOLE 500 MG IV SCH ×3 (05:16→22:32)
[2016-03-25] MEDS: REGULAR INSULIN 100 UNITS/ML - 3 ML VIAL SQ SCH ×4 (05:23→22:31)
[2016-03-25] MEDS: NS 1,000 ML IV SCH ×3 (06:45→16:20)
[2016-03-25] MEDS: LEVOTHYROXINE 50 MCG (0.05 MG) TAB PO SCH (07:55)
[2016-03-25] MEDS: GABAPENTIN 100 MG CAP PO SCH ×2 (07:56→19:28)
[2016-03-25] MEDS: ENSURE PUDDING CHOCOLATE 5 OZ PO SCH ×2 (11:02→19:29)
[2016-03-25] MEDS: ENOXAPARIN 30 MG/0.3 ML PFS SQ SCH (16:49)
--- NOTE | 2016-03-25 18:48 | DIRPT ---
CLINICAL DATA: 85-year-old female with worsening cough EXAM: PORTABLE CHEST 1 VIEW COMPARISON: Radiograph dated 03/22/2016 FINDINGS: Single-view of the chest demonstrates emphysematous changes of the lungs. Spine there is a focal area of opacity at the right lung base which may correspond to the elevated diaphragm seen on the prior study may represent subsegmental atelectasis/ pneumonia. Clinical correlation is recommended. No pleural effusion or pneumothorax. The cardiac silhouette is within normal limits. Median sternotomy wires. The osseous structures are grossly unremarkable. IMPRESSION: Emphysema. Focal right lung base atelectasis versus pneumonia. No pneumothorax. Electronically Signed By: Moses Alvarez M.D. On: 03/25/2016 18:46
[2016-03-25] MEDS: ACETAMINOPHEN 325 MG/TAB TABLET PO PRN (19:27)
[2016-03-25] MEDS: CEFTRIAXONE 1 GM in D5W 100 ML IV SCH (19:28)
[2016-03-25] MEDS: QUETIAPINE FUMARATE 25 MG TAB PO SCH (19:28)
--- NOTE | 2016-03-25 20:26 | GENMEDPROG ---
Notes Reviewed: Yes Events from last night noted and discussed with Clinical Staff Current Medication List: Reviewed Currently: Reports: Cough, RODAS, SOB DVT Prophylaxis: Yes - Physical Examination Vital Signs and I&O: Last Vital Signs Temp 98.5 F 03/25/16 16:51 Pulse 92 03/25/16 19:47 Resp 18 03/25/16 16:51 BP 157/68 03/25/16 16:51 Pulse Ox 95 03/25/16 16:51 Oxygen Pulse Oxygen Saturation 95 O2 Device Nasal Cannula Oxygen Flow Rate 2 Fraction of Inspired Oxygen ( FIO2) Intake & Output 03/22/16 03/23/16 03/24/16 03/25/16 23:59 23:59 23:59 23:59 Intake Total 700 2584 2637 2875 Output Total 1400 3000 850 Balance 700 6056 -123 2024 Patient's weight 80 lb 1.6 oz 81 lb 8 oz 83 lb 6.4 oz 84 lb General: Alert, Oriented x3, No acute distress, Well appearing, Well nourished HEENT: Normal (Normocephalic, atraumatic;EOMI.Sclera white, Nares patent, without discharge or bleeding. No oropharyngeal lesions or erythema. Mucous membranes are dry.) Neck: Non-tender, Full range of motion, Normal Trachea alignment, Normal inspection (No cervical lymphadenopathy. No supraclavicular lymphadenopathy.), No Masses palpable, Supple Lymphatics: Normal (no adenopathy) Respiratory: Diminished Cardiovascular: Regular rate and rhythm (No bradycardia or tachycardia), Normal S1, No Gallops,Rubs/Murmurs, Normal S2, Good Pedal Pulses (DP pulses 2+ bilaterally) GI: Normal bowel sounds (normal active sounds), Soft (non-distended), Non tender , No hepatospenomegaly, No masses Extremities/Musculoskeletal: Normal pulses (DP pulses 2+ bilaterally) Skin: Warm,Dry and Intact, No rashes, No significant lesion Neurological: Strength at 5/5 X4 ext (Motor 5/5 throughout.), Normal tone, Cranial nerves 3-12 NL ( 2-12 grossly intact.) Psych/Mental Status: Appropriate, Normal Affect Lab/DI/Studies Reviewed: Laboratory Results - last 24 hr 03/25/16 03/25/16 03/25/16 05:20 12:02 15:43 POC Capillary Glucose 120 H 114 H 150 H PORTABLE CHEST 1 VIEW COMPARISON: Radiograph dated 03/22/2016 FINDINGS: Single-view of the chest demonstrates emphysematous changes of the lungs. Spine there is a focal area of opacity at the right lung base which may correspond to the elevated diaphragm seen on the prior study may represent subsegmental atelectasis/ pneumonia. Clinical correlation is recommended. No pleural effusion or pneumothorax. The cardiac silhouette is within normal limits. Median sternotomy wires. The osseous structures are grossly unremarkable. IMPRESSION: Emphysema. Focal right lung base atelectasis versus pneumonia. No pneumothorax. - Assessment (1) Aspiration pneumonia Acute J69.0 - PNEUMONITIS DUE TO INHALATION OF FOOD AND VOMIT Qualifiers: Aspiration pneumonia type: unspecified Laterality: left Lung location: lower lobe of lung Qualified Code(s): J69.0 - Pneumonitis due to inhalation of food and vomit Comment/Plan: Plan: NPO until speech therapy evaluation. Cultures ordered. IV antibiotics: Challenging due to patient's multiple allergies. Will try a cephalosporin and another agent. IV ceftriazone and aztreonam. (2) Hypoxia Acute R09.02 - HYPOXEMIA Comment/Plan: Plan: Oxygen by nasal cannula and increase as needed. (3) Chest pain Acute R07.9 - CHEST PAIN, UNSPECIFIED Comment/Plan: Patient initially said she had no chest pain, but then later stated she had some chest pain previously. Denies chest pain on admission. Chest pain, if any, is most likely due to coughing and respiratory issues. Stress test 07/27/2015 revealed: no evidence of ischemia. Normal wall motion. EF 79%. Plan: Monitor for further episodes of chest pain. Treat with pain medication. (4) Bilateral leg weakness Acute R29.898 - OT SYMPTOMS AND SIGNS INVOLVING THE MUSCULOSKELETAL SYSTEM Comment/Plan: Has been present x several weeks. Plan: PT therapy eval and treat. (5) Dysphagia Acute R13.10 - DYSPHAGIA, UNSPECIFIED Comment/Plan: History of holding food in her mouth and not swallowing well. 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 Plan: NPO until speech therapy evaluation. (6) Hypothyroidism Acute E03.9 - HYPOTHYROIDISM, UNSPECIFIED Comment/Plan: Check TSH. Continue Synthroid. (7) Type 2 diabetes mellitus with hyperglycemia Acute E11.65 - TYPE 2 DIABETES MELLITUS WITH HYPERGLYCEMIA Comment/Plan: Plan: Hold oral diabetes medications. Check fingerstick blood sugars q ac and hs. Sliding scale insulin. Ordered A1c and urine microalbumin. (8) Dementia Chronic F03.90 - UNSPECIFIED DEMENTIA WITHOUT BEHAVIORAL DISTURBANCE Comment /Plan: Not oriented. Will hinder efforts with patient education and treatment. Plan: Continue home meds.
[2016-03-25] MEDS ORDERED: CHAPSTICK LIP BALM ONE (20:32)
[2016-03-26] MEDS: METRONIDAZOLE 500 MG IV SCH ×3 (05:48→22:27)
[2016-03-26] MEDS: NS 1,000 ML IV SCH ×2 (05:52→17:53)
[2016-03-26] MEDS: REGULAR INSULIN 100 UNITS/ML - 3 ML VIAL SQ SCH ×4 (05:53→20:47)
[2016-03-26] MEDS: GABAPENTIN 100 MG CAP PO SCH ×2 (07:12→20:26)
[2016-03-26] MEDS: LEVOTHYROXINE 50 MCG (0.05 MG) TAB PO SCH (07:12)
[2016-03-26 08:06] LABS: AUTOMATED BASOPHIL 0.8 % (0-2); AUTOMATED EOSINOPHIL 2.5 % (0-5); AUTOMATED LYMPH 12.7 % (17-44); AUTOMATED MONOCYTE 12.5 % (3-10); AUTOMATED NEUTROPHIL 71.5 % (45-76); MPV 9.4 fL (7.4-10.4)
--- NOTE | 2016-03-26 09:34 | DIRPT ---
CLINICAL DATA: Respiratory failure. Difficulty breathing. EXAM: PORTABLE CHEST 1 VIEW COMPARISON: 03/25/2016 FINDINGS: Lungs are hyperinflated. Patchy infiltrate is identified in the right upper lobe. Right pleural effusion is present and is associated with atelectasis or basilar infiltrate. Overall appearance is stable compared to most recent exam. Left lung is clear. Heart size is normal. Status post median sternotomy. No pulmonary edema. IMPRESSION: Persistent right upper lobe infiltrate and right pleural effusion. Electronically Signed By: Sidra Kee M.D. On: 03/26/2016 09:31
[2016-03-26 09:57] LABS: BLOOD UREA NITROGEN 5 MG/DL (7-17); CALCIUM 7.8 MG/DL (8.4-10.2); CALCULATED OSMOLALITY 263 MOs/Kg (270-290); CHLORIDE 105 mEq/L (98-107); GLUCOSE 95 MG/DL (70-99); SODIUM LEVEL 138 mEq/L (137-146)
[2016-03-26] MEDS: ENSURE PUDDING CHOCOLATE 5 OZ PO SCH ×2 (12:06→20:47)
--- NOTE | 2016-03-26 12:34 | GENMEDPROG ---
Chief Complaint: Aspiration pneumonia, dementia Subjective Note: Resting in bed this morning. Still on 1 L nasal cannula oxygen. Quite lethargic. Emaciated appearing. Notes Reviewed: Yes Events from last night noted and discussed with Clinical Staff Current Medication List: Reviewed Currently: Reports: Cough, RODAS, SOB DVT Prophylaxis: Yes - Physical Examination Vital Signs and I&O: Last Vital Signs Temp 98.6 F 03/26/16 10:56 Pulse 64 03/26/16 10:56 Resp 18 03/26/16 10:56 BP 152/60 03/26/16 10:56 Pulse Ox 96 03/26/16 10:56 Oxygen Pulse Oxygen Saturation 96 O2 Device Nasal Cannula Oxygen Flow Rate 1 Fraction of Inspired Oxygen ( FIO2) Intake & Output 03/24/16 03/25/16 03/26/16 03/27/16 06:59 06:59 06:59 06:59 Intake Total 3641 2234 2766 254 Output Total 1625 8895 1250 Balance 2015 -341 1516 254 Patient's weight 37.83 kg 38.102 kg 37.45 kg General: Alert, Oriented x3, No acute distress, Well appearing, Well nourished HEENT: Normal (Normocephalic, atraumatic;EOMI.Sclera white, Nares patent, without discharge or bleeding. No oropharyngeal lesions or erythema. Mucous membranes are dry.) Neck: Non-tender, Full range of motion, Normal Trachea alignment, Normal inspection (No cervical lymphadenopathy. No supraclavicular lymphadenopathy.), No Masses palpable, Supple Lymphatics: Normal (no adenopathy) Respiratory: Diminished Cardiovascular: Regular rate and rhythm (No bradycardia or tachycardia), Normal S1, No Gallops,Rubs/Murmurs, Normal S2, Good Pedal Pulses (DP pulses 2+ bilaterally) GI: Normal bowel sounds (normal active sounds), Soft (non-distended), Non tender , No hepatospenomegaly, No masses Extremities/Musculoskeletal: Normal pulses (DP pulses 2+ bilaterally) Skin: Warm,Dry and Intact, No rashes, No significant lesion Neurological: Strength at 5/5 X4 ext (Motor 5/5 throughout.), Normal tone, Cranial nerves 3-12 NL ( 2-12 grossly intact.) Psych/Mental Status: Appropriate, Normal Affect Lab/DI/Studies Reviewed: Laboratory Tests 03/26/16 03/26/16 06:11 08:45 WBC 6.2 Hgb 11.5 L Potassium 3.1 L BUN 5 L Creatinine 0.40 L - Assessment (1) Aspiration pneumonia Acute J69.0 - PNEUMONITIS DUE TO INHALATION OF FOOD AND VOMIT Qualifiers: Aspiration pneumonia type: unspecified Laterality: left Lung location: lower lobe of lung Qualified Code(s): J69.0 - Pneumonitis due to inhalation of food and vomit Comment/Plan: Seen by speech therapy. Cultures pending. Continue her IV ceftriaxone and aztreonam. Overall seems to be improving, now on 1 L nasal cannula oxygen, continue to wean as able. (2) Bilateral leg weakness Acute R29.898 - OT SYMPTOMS AND SIGNS INVOLVING THE MUSCULOSKELETAL SYSTEM Comment/Plan: Has been present x several weeks. Plan: PT therapy eval and treat. Physical therapy recommends home with family. (3) Hypothyroidism Acute E03.9 - HYPOTHYROIDISM, UNSPECIFIED Comment/Plan: Check TSH. Continue Synthroid. (4) Type 2 diabetes mellitus with hyperglycemia Acute E11.65 - TYPE 2 DIABETES MELLITUS WITH HYPERGLYCEMIA Comment/Plan: Plan: Hold oral diabetes medications. Check fingerstick blood sugars q ac and hs. Sliding scale insulin. Ordered A1c and urine microalbumin. - Plan Continue present care, continue on empiric IV antibiotics, wean oxygen as able. Likely home in the next 1-2 days. Total Time: 32
[2016-03-26] MEDS: ENOXAPARIN 30 MG/0.3 ML PFS SQ SCH (17:42)
[2016-03-26] MEDS: ACETAMINOPHEN 325 MG/TAB TABLET PO PRN (17:42)
[2016-03-26] MEDS: CEFTRIAXONE 1 GM in D5W 100 ML IV SCH (20:25)
[2016-03-26] MEDS: QUETIAPINE FUMARATE 25 MG TAB PO SCH (20:26)
[2016-03-27] MEDS: REGULAR INSULIN 100 UNITS/ML - 3 ML VIAL SQ SCH ×3 (05:19→17:25)
[2016-03-27] MEDS: METRONIDAZOLE 500 MG IV SCH ×3 (05:21→23:00)
[2016-03-27] MEDS: KCL 20 mEq/100 ml Premix Run 20 MEQ/100 ML RTU IV SCH ×3 (08:10→13:54)
[2016-03-27] MEDS: NS 1,000 ML IV SCH ×3 (08:13→10:31)
[2016-03-27] MEDS: POTASSIUM CHLORIDE 20 MEQ TAB PO SCH ×3 (08:20→17:26)
[2016-03-27] MEDS: GABAPENTIN 100 MG CAP PO SCH ×2 (08:20→23:10)
[2016-03-27] MEDS: LEVOTHYROXINE 50 MCG (0.05 MG) TAB PO SCH (08:20)
[2016-03-27] MEDS: ENSURE PUDDING CHOCOLATE 5 OZ PO SCH (08:21)
[2016-03-27 10:37] VITALS: BMI 12.4
--- NOTE | 2016-03-27 15:19 | GENMEDPROG ---
Chief Complaint: 85-year-old female improving very slowly. Subjective Note: 85-year-old female improving very slowly hopefully home in the next couple of days. Hospice to see the patient today. Notes Reviewed: Yes Events from last night noted and discussed with Clinical Staff Current Medication List: Reviewed Currently: Reports: Cough, RODAS, SOB DVT Prophylaxis: Yes - Physical Examination Vital Signs and I&O: Last Vital Signs Temp 97.9 F 03/27/16 13:37 Pulse 69 03/27/16 13:37 Resp 18 03/27/16 13:37 BP 179/78 03/27/16 13:37 Pulse Ox 97 03/27/16 13:37 Oxygen Pulse Oxygen Saturation 97 O2 Device Room Air Oxygen Flow Rate 1 Fraction of Inspired Oxygen ( FIO2) Intake & Output 03/24/16 03/25/16 03/26/16 03/27/16 23:59 23:59 23:59 23:59 Intake Total 2637 2875 1591 530 Output Total 3000 782 929 3919 Balance -363 2025 1191 -620 Patient's weight 37.83 kg 38.102 kg 37.45 kg 37.013 kg General: Alert, Oriented x3, No acute distress, Well appearing, Well nourished HEENT: Normal (Normocephalic, atraumatic;EOMI.Sclera white, Nares patent, without discharge or bleeding. No oropharyngeal lesions or erythema. Mucous membranes are dry.) Neck: Non-tender, Full range of motion, Normal Trachea alignment, Normal inspection (No cervical lymphadenopathy. No supraclavicular lymphadenopathy.), No Masses palpable, Supple Lymphatics: Normal (no adenopathy) Respiratory: Diminished Cardiovascular: Regular rate and rhythm (No bradycardia or tachycardia), Normal S1, No Gallops,Rubs/Murmurs, Normal S2, Good Pedal Pulses (DP pulses 2+ bilaterally) GI: Normal bowel sounds (normal active sounds), Soft (non-distended), Non tender , No hepatospenomegaly, No masses Extremities/Musculoskeletal: Normal pulses (DP pulses 2+ bilaterally) Skin: Warm,Dry and Intact, No rashes, No significant lesion Neurological: Strength at 5/5 X4 ext (Motor 5/5 throughout.), Normal tone, Cranial nerves 3-12 NL ( 2-12 grossly intact.) Psych/Mental Status: Appropriate, Normal Affect Lab/DI/Studies Reviewed: Abnormal Lab Results 03/26/16 20:40 POC Capillary Glucose 102 H Laboratory Tests 03/23/16 03/23/16 04:52 05:35 Hemoglobin A1c 8.2 H Ur Random Microalbumin 21.3 - Assessment (1) Aspiration pneumonia Acute J69.0 - PNEUMONITIS DUE TO INHALATION OF FOOD AND VOMIT Qualifiers: Aspiration pneumonia type: unspecified Laterality: left Lung location: lower lobe of lung Qualified Code(s): J69.0 - Pneumonitis due to inhalation of food and vomit Comment/Plan: Seen by speech therapy. Cultures pending. Continue her IV ceftriaxone and aztreonam. Weaned to room air today. (2) Bilateral leg weakness Acute R29.898 - OTH SYMPTOMS AND SIGNS INVOLVING THE MUSCULOSKELETAL SYSTEM Comment/Plan: Has been present x several weeks. Plan: PT therapy eval and treat. Physical therapy recommends home with family. (3) Chest pain Acute R07.9 - CHEST PAIN, UNSPECIFIED Comment/Plan: Patient initially said she had no chest pain, but then later stated she had some chest pain previously. Denies chest pain on admission. Chest pain, if any, is most likely due to coughing and respiratory issues. Stress test 07/27/2015 revealed: no evidence of ischemia. Normal wall motion. EF 79%. Plan: Monitor for further episodes of chest pain. Treat with pain medication. (4) Dysphagia Acute R13.10 - DYSPHAGIA, UNSPECIFIED Comment/Plan: History of holding food in her mouth and not swallowing well. 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 Plan: Speech therapy has seen the patient and recommended a diet plan (5) Hypothyroidism Acute E03.9 - HYPOTHYROIDISM, UNSPECIFIED Comment/Plan: Check TSH. Continue Synthroid. (6) Hypoxia Acute R09.02 - HYPOXEMIA Comment/Plan: Plan: Oxygen by nasal cannula and increase as needed. (7) Type 2 diabetes mellitus with hyperglycemia Acute E11.65 - TYPE 2 DIABETES MELLITUS WITH HYPERGLYCEMIA Qualifiers: Diabetes mellitus detention insulin use: without detention use Qualified Code(s): E11.65 - Type 2 diabetes mellitus with hyperglycemia Comment/Plan: Plan: Hold oral diabetes medications. Check fingerstick blood sugars q ac and hs. Sliding scale insulin. Hemoglobin A1c in urinary microalbumin as above. (8) Dementia Chronic F03.90 - UNSPECIFIED DEMENTIA WITHOUT BEHAVIORAL DISTURBANCE Qualifiers: Dementia behavioral disturbance: with behavioral disturbance Comment/Plan: Not oriented. Will hinder efforts with patient education and treatment. Plan: Continue home meds. Patient to meet with hospice today. - Plan Hopefully home with hospice care in the next 24-48 hours Disposition Plan: Home with hospice. Case Care Discussed with: Patient, Family Education/Counseling Given To: Patient Education/Counseling Given Regarding: Diagnosis, Treatment, Prognosis, Follow Up , Disposition Plan Total Time: 45 minutes Critical Care: No Couseling Time (>50% in counseling/coordination): No
[2016-03-27] MEDS: FLUCONAZOLE 100 MG TAB PO SCH (17:26)
[2016-03-27] MEDS: ENOXAPARIN 30 MG/0.3 ML PFS SQ SCH (17:26)
[2016-03-27] MEDS: MAGIC MOUTHWASH 180 ML ORAL SUSP PO SCH (17:27)
[2016-03-27] MEDS: CEFTRIAXONE 1 GM in D5W 100 ML IV SCH (20:00)
[2016-03-27] MEDS: QUETIAPINE FUMARATE 25 MG TAB PO SCH (23:09)
[2016-03-28] MEDS: REGULAR INSULIN 100 UNITS/ML - 3 ML VIAL SQ SCH ×2 (00:12→06:23)
[2016-03-28] MEDS: ENSURE PUDDING CHOCOLATE 5 OZ PO SCH (00:12)
[2016-03-28] MEDS: MAGIC MOUTHWASH 180 ML ORAL SUSP PO SCH ×2 (03:14→05:06)
[2016-03-28] MEDS: METRONIDAZOLE 500 MG IV SCH (05:05)
[2016-03-28] MEDS: GABAPENTIN 100 MG CAP PO SCH (07:57)
[2016-03-28] MEDS: POTASSIUM CHLORIDE 20 MEQ TAB PO SCH (07:57)
[2016-03-28] MEDS: FLUCONAZOLE 100 MG TAB PO SCH (07:58)
[2016-03-28] MEDS: NS 1,000 ML IV SCH (08:06)
[2016-03-28] MEDS ORDERED: LEVOTHYROXINE 25 MCG (0.025 MG) TAB PO SCH (09:00)
[2016-03-28 09:56] VITALS: BP 145/69; PULSE 66; TEMP 97.9
--- NOTE | 2016-03-28 10:36 | PCM.DCS92 ---
- Final/Secondary Discharge Diagnosis (1) Aspiration pneumonia Acute J69.0 - PNEUMONITIS DUE TO INHALATION OF FOOD AND VOMIT Present on Admission: Yes unspecified left lower lobe of lung J69.0 - Pneumonitis due to inhalation of food and vomit Comment: Seen by speech therapy. Cultures pending. Continue her IV ceftriaxone and aztreonam. Weaned to room air today. (2) Bilateral leg weakness Acute R29.898 - OTH SYMPTOMS AND SIGNS INVOLVING THE MUSCULOSKELETAL SYSTEM Present on Admission: Yes Comment: Has been present x several weeks. Plan: PT therapy eval and treat. Physical therapy recommends home with family. (3) Chest pain Acute R07.9 - CHEST PAIN, UNSPECIFIED Present on Admission: Yes Comment: Patient initially said she had no chest pain, but then later stated she had some chest pain previously. Denies chest pain on admission. Chest pain, if any, is most likely due to coughing and respiratory issues. Stress test 07/27/2015 revealed: no evidence of ischemia. Normal wall motion. EF 79%. Plan: Monitor for further episodes of chest pain. Treat with pain medication. (4) Dysphagia Acute R13.10 - DYSPHAGIA, UNSPECIFIED Present on Admission: Yes oral phase R13.11 - Dysphagia, oral phase Comment: History of holding food in her mouth and not swallowing well. 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 Plan: Speech therapy has seen the patient and recommended a diet plan (5) Hypothyroidism Acute E03.9 - HYPOTHYROIDISM, UNSPECIFIED Present on Admission: Yes Comment: Check TSH. Continue Synthroid. (6) Hypoxia Acute R09.02 - HYPOXEMIA Present on Admission: Yes Comment: weaned off O2 (7) Type 2 diabetes mellitus with hyperglycemia Acute E11.65 - TYPE 2 DIABETES MELLITUS WITH HYPERGLYCEMIA Present on Admission: Yes without shelter use E11.65 - Type 2 diabetes mellitus with hyperglycemia Comment: Plan: Hold oral diabetes medications. Check fingerstick blood sugars q ac and hs. Sliding scale insulin. Hemoglobin A1c in urinary microalbumin as above. 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 Will hinder efforts with patient education and treatment. Plan: Continue home meds. Patient to meet with hospice today. Discharge Disposition: Disc to Hospice Care (at home) Discharge Condition: Improved Cognitive Discharge Status: Cognitive deficits prevent decision making for safety. Fuctional Discharge Status: Walker Assistance, Fall Risk, Ambulatory Dysfunction Physician Follow up/Referrals: Kait Hugo NP [Ambulatory] - One Week New Prescriptions: Fluconazole [Diflucan] 100 mg PO DAILY #2 tablet Ensure [Ensure Pudding (Chocolate)] 5 oz PO 1200,2100 #60 can POTASSIUM CHLORIDE Tablet [K-DUR 20 mEq Tablet*] 20 meq PO DAILY #30 tab.er.prt Quetiapine Fumarate [Seroquel] 75 mg PO .BID SEE COMMENTS #180 tablet Discharge Home Medication List Levothyroxine [Synthroid, Levoxyl] 50 mcg PO DAILY 07/19/15 [History Confirmed 03/22/16] Gabapentin [Neurontin] 100 mg PO BID 03/22/16 [History Confirmed 03/22/16] Metformin HCl 1,000 mg PO DAILY 03/22/16 [History Confirmed 03/22/16] Cefdinir [Omnicef] 300 mg PO BID #4 capsule 03/28/16 [Rx] Ensure [Ensure Pudding (Chocolate)] 5 oz PO 1200,2100 #60 can 03/28/16 [Rx] Fluconazole [Diflucan] 100 mg PO DAILY #2 tablet 03/28/16 [Rx] POTASSIUM CHLORIDE Tablet [K-DUR 20 mEq Tablet*] 20 meq PO DAILY #30 tab.er.prt 03/28/16 [Rx] Quetiapine Fumarate [Seroquel] 75 mg PO .BID SEE COMMENTS #180 tablet 03/28/16 [ Rx] New Discharge Medications (Rx) Cefdinir [Omnicef] 300 mg PO BID #4 capsule 03/28/16 [Rx] Ensure [Ensure Pudding (Chocolate)] 5 oz PO 1200,2100 #60 can 03/28/16 [Rx] Fluconazole [Diflucan] 100 mg PO DAILY #2 tablet 03/28/16 [Rx] POTASSIUM CHLORIDE Tablet [K-DUR 20 mEq Tablet*] 20 meq PO DAILY #30 tab.er.prt 03/28/16 [Rx] Quetiapine Fumarate [Seroquel] 75 mg PO .BID SEE COMMENTS #180 tablet 03/28/16 [ Rx] O2 Device: Room Air Diet at Discharge: Regular Activity: No Restrictions, As Tolerated Call Office For: Worsening Symptoms, Fever over 100.5, Pain Uncontrolled By Meds - DC Summary Notes Hospital Course Note:: Discharge summary on patient named NEYMAR TORRES admitted to [facility] on 03/22/16 by Clayton Penny MD. Date of discharge is []. 85-year-old female with oral phase dysphagia who presented to our facility with an aspiration pneumonia. She was seen by speech therapy and recommendations were made for feeding. Given her advanced age and progressive decline family has requested hospice care at discharge. A bed has been delivered to the home. Her aspiration pneumonia slowly improved. At this point she is on room air and she has reached maximal benefit of hospitalization. She is stable for discharge home. She will begin hospice care at discharge. Total Time: 45 min Code: 12150 (>30min.) - Physical Exam Vital Signs: Last Vital Signs Temp 97.9 F 03/28/16 09:55 Pulse 66 03/28/16 09:55 Resp 18 03/28/16 09:55 BP 145/69 03/28/16 09:55 Pulse Ox 96 03/28/16 09:55 Oxygen Pulse Oxygen Saturation 96 O2 Device Room Air Oxygen Flow Rate 1 Fraction of Inspired Oxygen ( FIO2) Constitutional: No apparent distress, Alert (Awake) Oriented to: Time, Person, Place - HEENT Head: Normal ( normocephalic) Eye: Normal (PERRL, EOMI, Sclera white) Oropharynx: Normal (Pharynx:Moist without exudate,Gums-no swelling) Tympanic Membrane: Normal ENT EAC: Normal TMJ: Normal Nose: No Symptoms Reported (septum midline) - Respiratory/Cardiovascular Respiratory: Diminished - GI Auscultation: Normal (NABS) Palpation: Normal (Soft,No rebound or guarding, non distended) Tenderness: Non tender Wesley's Sign: Negative - Musculoskeletal Back: Normal (Non-Tender) Extremities: Normal (Normal tone, Pulses 2+ No cyanosis or edema, FROM) - Integumentary Skin: Normal (Warm dry no rashes) Lymphatics: Normal (no adenopathy) - Neurologic Memory Impaired: Normal Motor Function: Unable to Test Cranial Nerve: Unable to Test Cerebellar: Normal Mood Description: Normal Perception: Normal - Other Exam Other Exam Findings: Abnormal Lab Results 03/27/16 16:02 POC Capillary Glucose 104 H
== END 2016-03-28 12:00 | disposition hospice, home (50) | DRG 178 ==
LOC: ED 17:31 → PCU 20:12 → MPS3 03-25 20:11
PROVIDERS: ADMIT Internal Medicine; ATTEND Hospitalist
PROC: 039C3ZZ Drainage of Left Radial Artery, Percutaneous Approach (ICD-10-PCS; principal; 2016-03-22)
DX: J69.0 Pneumonitis due to inhalation of food and vomit (principal); F01.51 Vascular dementia, unspecified severity, with behavioral disturbance; E11.65 Type 2 diabetes mellitus with hyperglycemia; Z66 Do not resuscitate; Z51.5 Encounter for palliative care; R29.898 Other symptoms and signs involving the musculoskeletal system; R13.11 Dysphagia, oral phase; Z95.5 Presence of coronary angioplasty implant and graft; E03.9 Hypothyroidism, unspecified; E78.00 Pure hypercholesterolemia, unspecified; R09.02 Hypoxemia; Z87.891 Personal history of nicotine dependence; I10 Essential (primary) hypertension; I25.10 Atherosclerotic heart disease of native coronary artery without angina pectoris; Z79.84 Long term (current) use of oral hypoglycemic drugs; Z79.899 Other long term (current) drug therapy
CPT/HCPCS: 36415; 36600; 71010; 80048; 80053; 81001; 82043; 82803; 82962; 83036; 83605; 84132; 84443; 84484; 85025; 85027; 85610; 85730; 87040; 87086; 87804; 93005; 96365; 96372; 98960; 99283; J0456; J0696; J1650; J3370; J3480; J3490; J7060; J7070